=== PATIENT | female | born 1950 | race Caucasian/White ===

== ENCOUNTER 2018-05-25 00:37 | Emergency (ER) | payer MEDICARE ==
[2018-05-25 00:43] VITALS: BP 154/95
== END 2018-05-25 01:42 | disposition left against medical advice (07) ==
LOC: ED 00:37
DX: R21 Rash and other nonspecific skin eruption (principal); R06.02 Shortness of breath; Z53.21 Procedure and treatment not carried out due to patient leaving prior to being seen by health care provider

== ENCOUNTER 2018-05-25 09:10 | Emergency (ER) | payer MEDICARE ==
[2018-05-25] MEDS ORDERED: Famotidine TAB* 20 MG PO ONE (10:35)
[2018-05-25] MEDS ORDERED: diPHENhydraMINE PO* 50 MG PO ONE (10:35)
[2018-05-25] MEDS ORDERED: methylPREDNISolone 125 MG* 2 ML VIAL IV ONE (10:35)
[2018-05-25] MEDS ORDERED: predniSONE TAB* 20 MG PO ONE (11:04)
[2018-05-25 11:14] LABS: ABS Basophils 0 10^3/ul (0-0.2); ABS Eosinophils 0.3 10^3/ul (0-0.6); ABS Lymphocytes 0.9 10^3/ul (1.0-4.8); ABS Monocytes 0.7 10^3/ul (0-0.8); ABS Neutrophils 3.7 10^3/ul (1.5-7.7); ABS Nucleated RBC 0 10^3/ul; Eosinophil % 4.8 %; Hematocrit 34 % (33-41); Hemoglobin 11.5 g/dL (12.0-16.0); Lymphocyte % 15.9 %; Mean Corpuscular HGB Conc 34 g/dL (31-36); Mean Corpuscular Hemoglobin 29 pg (27-31); Mean Corpuscular Volume 86 fL (80-97); Mean Platelet Volume 8.3 fL (7.4-10.4); Nucleated Red Blood Cells % 0; Platelet Count 191 10^3/uL (150-450); Red Cell Distribution Width 14 % (10.5-15); White Blood Count 5.6 10^3/uL (3.5-10.8)
[2018-05-25 11:32] LABS: Albumin 3.9 g/dL (3.2-5.2); Albumin/Globulin Ratio 1.1 (1-3); BUN/Creatinine Ratio 19.4 (8-20); C Reactive Protein 7.15 mg/L (<8.01); Calcium 9.7 mg/dL (8.6-10.3); EGFR African American 45.5 (>60); EGFR Non-African American 37.6 (>60); Globulin 3.5 g/dL (2-4); Potassium 4.4 mmol/L (3.5-5.0); Total Bilirubin 0.3 mg/dL (0.2-1.0); Total Protein 7.4 g/dL (6.4-8.9)
[2018-05-25 13:06] VITALS: BP 125/78
--- NOTE | 2018-05-25 17:59 | ED ---
Skin Complaint - HPI Summary HPI Summary: Patient is a 68-year-old female who presents emergency department for a pruritic rash that started last night. Patient states she woke up from sleep around 11:00 last night and noticed a rash to her upper chest neck and face. She describes rash as a burning sensation and it is itchy. Patient checked into the emergency department last night but left before being seen due to a times. Patient states she took Benadryl without improvement. Patient notes a history of lupus and is not currently on any medications. Also has a history of high blood pressure and takes lisinopril. Patient denies any new medications , exposures, foods, lotions, laundry detergents, etc. Symptoms are mild-to- moderate in severity. No current modifying factors. Denies chest pain, shortness of breath, recent illness, abdominal pain, vomiting, diarrhea, urinary symptoms. Patient does note chronic headaches and currently has a headache. She was was noted to have a fever in the ER for 100.8F but denies any flulike symptoms. - History of Current Complaint Chief Complaint: EDRashSkinAbscess Time Seen by Provider: 05/25/18 09:23 Stated Complaint: RASH ALL OVER PER PT Hx Obtained From: Patient Pain Intensity: 2 Pain Scale Used: 0-10 Numeric - Allergy/Home Medications Allergies/Adverse Reactions: Allergies Allergy/AdvReac Type Severity Reaction Status Date / Time niacin Allergy Swelling Verified 05/25/18 09:12 Of Face,Lips,& Throat sulfamethoxazole Allergy Swelling Verified 05/25/18 09:12 [From Bactrim] Of Face,Lips,& Throat tetracycline Allergy Swelling Verified 05/25/18 09:12 Of Face,Lips,& Throat trimethoprim [From Bactrim] Allergy Swelling Verified 05/25/18 09:12 Of Face,Lips,& Throat Home Medications: Home Medications Calcium Carbonate/Vitamin D3 [Calcium 1000 + D] 1 tab PO DAILY 05/25/18 [ History Confirmed 05/25/18] Lisinopril/HCTZ 20/12.5(NF) [Zestoretic 20/12.5(NF)] 1 tab PO DAILY 05/25/18 [ History Confirmed 05/25/18] Omeprazole 20 mg PO EVERY OTHER DAY 05/25/18 [History Confirmed 05/25/18] PMH/Surg Hx/FS Hx/Imm Hx Previously Healthy: Yes Endocrine/Hematology History: Reports: Hx Systemic Lupus Erythematosus Musculoskeletal History: Reports: Hx Arthritis Infectious Disease History: No Infectious Disease History: Denies: Traveled Outside the [place] in Last 30 Days - Family History Known Family History: Positive: Non-Contributory - Social History Occupation: Retired Lives: With Family Alcohol Use: None Substance Use Type: Reports: None Smoking Status (MU): Never Smoked Tobacco Review of Systems Positive: Fever, Chills Eyes: Negative ENT: Negative Cardiovascular: Negative Negative: Palpitations, Chest Pain Positive: Cough - chronic mild cough. Negative: Shortness Of Breath Gastrointestinal: Negative Negative: Abdominal Pain, Vomiting, Diarrhea Genitourinary: Negative Negative: dysuria Musculoskeletal: Negative Negative: Myalgia Positive: Rash Positive: Headache. Negative: Weakness, Paresthesia, Numbness, Syncope All Other Systems Reviewed And Are Negative: Yes Physical Exam Triage Information Reviewed: Yes Vital Signs On Initial Exam: Initial Vitals Temp Pulse Resp BP Pulse Ox 100.8 F 99 18 135/82 99 05/25/18 09:13 05/25/18 09:13 05/25/18 09:13 05/25/18 09:13 05/25/18 09:13 Vital Signs Reviewed: Yes Appearance: Positive: Well-Appearing - Pt. sitting up in bed in NAD. present. Skin: Positive: Warm, Dry, Other - Erythematous macular rash noted to upper chest that extends to neck, face, ears, and posterior neck. faintly on abd. Blanchable. No vesicles or blisters. Neg. nikolsky sign. Head/Face: Positive: Normal Head/Face Inspection Eyes: Positive: Normal, EOMI, SANTOSH, Conjunctiva Clear Neck: Positive: Supple, Nontender Respiratory/Lung Sounds: Positive: Clear to Auscultation, Breath Sounds Present. Negative: Rales, Rhonchi, Wheezes Cardiovascular: Positive: Normal, RRR Abdomen Description: Positive: Nontender, Soft Musculoskeletal: Positive: Normal, Strength/ROM Intact Neurological: Positive: Normal, CN Intact II-III Psychiatric: Positive: Affect/Mood Appropriate Diagnostics - Vital Signs Vital Signs Temp Pulse Resp BP Pulse Ox 05/25/18 13:05 97.8 F 90 18 125/78 99 05/25/18 09:13 100.8 F 99 18 135/82 99 - Laboratory Lab Results: Lab Results 05/25/18 05/25/18 Range/Units 10:58 10:58 WBC 5.6 (3.5-10.8) 10^3/uL RBC 4.00 (3.70-4.87) 10^6 /uL Hgb 11.5 L (12.0-16.0) g/dL Hct 34 (33-41) % MCV 86 (80-97) fL MCH 29 (27-31) pg MCHC 34 (31-36) g/dL RDW 14 (10.5-15) % Plt Count 191 (150-450) 10^3/uL MPV 8.3 (7.4-10.4) fL Neut % (Auto) 66.3 % Lymph % (Auto) 15.9 % [place] % (Auto) 12.5 % Eos % (Auto) 4.8 % Baso % (Auto) 0.5 % Absolute Neuts (auto) 3.7 (1.5-7.7) 10^3/ul Absolute Lymphs (auto) 0.9 L (1.0-4.8) 10^3/ul Absolute Monos (auto) 0.7 (0-0.8) 10^3/ul Absolute Eos (auto) 0.3 (0-0.6) 10^3/ul Absolute Basos (auto) 0 (0-0.2) 10^3/ul Absolute Nucleated RBC 0 10^3/ul Nucleated RBC % 0 Sodium 135 (135-145) mmol/L Potassium 4.4 (3.5-5.0) mmol/L Chloride 101 (101-111) mmol/L Carbon Dioxide 28 (22-32) mmol/L Anion Gap 6 (2-11) mmol/L BUN 27 H (6-24) mg/dL Creatinine 1.39 H (0.51-0.95) mg/dL Est GFR ( Amer) 45.5 (>60) Est GFR (Non-Af Amer) 37.6 (>60) BUN/Creatinine Ratio 19.4 (8-20) Glucose 104 H (70-100) mg/dL Calcium 9.7 (8.6-10.3) mg/dL Total Bilirubin 0.30 (0.2-1.0) mg/dL AST 19 (13-39) U/L ALT 12 (7-52) U/L Alkaline Phosphatase 77 (34-104) U/L C-Reactive Protein 7.15 (<8.01) mg/L Total Protein 7.4 (6.4-8.9) g/dL Albumin 3.9 (3.2-5.2) g/dL Globulin 3.5 (2-4) g/dL Albumin/Globulin Ratio 1.1 (1-3) Result Diagrams: 05/25/18 10:58 05/25/18 10:58 Lab Statement: Any lab studies that have been ordered have been reviewed, and results considered in the medical decision making process. Course/Dx - Course Course Of Treatment: Patient presenting for rash and low-grade fever. She is no respiratory symptoms, facial or mouth swelling or evidence of anaphylaxis. Patient was examined by Dr. Hoffman as well. He feels it is most likely secondary to allergic reaction. Patient was given a dose of Benadryl, Pepcid and prednisone. Basic blood work, chest x-ray, urine and influenza were ordered. Labs are unremarkable including normal CBC and CRP. Chest x-ray negative for acute findings. Patient did not provide a urine sample. Patient refused influenza swab stating she has had nasal surgery and was told to never have anything placed in her nose. On reexamination rashes roughly the same. Will treat palpation on Pepcid, Benadryl and prednisone at home for a few days. Patient has a scheduled appointment with her family doctor for this coming Monday. Advised to return to the ER for worsening rash, pain, high fever, blistering or if concerned. Patient understands and agrees with plan. - Differential Diagnoses - Skin Complaint Differential Diagnoses: Abscess, Cellulitis, Contact Dermatitis, Erythema Nodosum, Erythema Multiforme - Diagnoses Provider Diagnoses: Rash, Allergic reaction Discharge - Sign-Out/Discharge Documenting (check all that apply): Patient Departure Patient Received Moderate/Deep Sedation with Procedure: No - Discharge Plan Condition: Good Disposition: HOME Prescriptions: Famotidine TAB* [Pepcid 20 MG TAB*] 40 mg PO DAILY #5 tab predniSONE TAB* [Deltasone 20 MG TAB*] 40 mg PO DAILY #10 tab Patient Education Materials: Urticaria (ED), Acute Rash (ED) Referrals: Isauro Campbell MD [Primary Care Provider] - Additional Instructions: Follow up with Dr. Campbell as scheduled next week Take medication as directed Take over the counter benadryl as directed for itching and rash Return to ER for high fever, blistering, spreading rash, chest pain, shortness of breath or if concerned - Billing Disposition and Condition Condition: GOOD Disposition: Home
== END 2018-05-25 13:05 | disposition home or self-care (01) ==
LOC: ED 09:10
DX: T78.40XA Allergy, unspecified, initial encounter (principal); X58.XXXA Exposure to other specified factors, initial encounter; R21 Rash and other nonspecific skin eruption; M32.9 Systemic lupus erythematosus, unspecified; M19.90 Unspecified osteoarthritis, unspecified site; Z88.2 Allergy status to sulfonamides
CPT/HCPCS: 36415; 71046; 80053; 85025; 86140; 96374; 99283; A9270-GY; J7512

== ENCOUNTER 2018-06-12 14:27 | Emergency (ER) | payer MEDICARE ==
[2018-06-12 16:44] VITALS: BP 120/68
--- NOTE | 2018-06-12 17:42 | ED ---
Lower Extremity - HPI Summary HPI Summary: patient is a 68-year-old female presenting to the ED with left lower extremity pain after a fall 1 week ago. She states after her fall, her whole body hurt, but denied any pain to the leg. She endorsed pain over the ankle, which is now improved and denies any pain currently. She states the pain is a sharp nervelike pain which is intermittent, runs to the posterior calf and hamstring intermittently only with ambulation and only in the last 2 days. She denies any back pain. Denies any urinary symptoms. Patient has a history of lupus and arthritis. She states this feels different than her previous pains. She's never been diagnosed with a blood clot and denies any blood thinners. - History of Current Complaint Chief Complaint: EDExtremityLower Stated Complaint: FELL/LEFT LEG PAIN PER PT Time Seen by Provider: 06/12/18 14:41 Hx Obtained From: Patient Onset of Pain: Minutes, Hours Onset/Duration: Hours Severity Initially: Moderate Severity Currently: Moderate Pain Intensity: 3 Pain Scale Used: 0-10 Numeric Timing: Constant, Intermittent, Lasting Minutes Location: Is Discrete @ - left leg Associated Signs And Symptoms: Positive: Negative Aggravating Factor(s): Standing, Ambulation Alleviating Factor(s): Rest Able to Bear Weight: Yes - Risk Factors Gout Risk Factors: Negative DVT Risk Factors: Negative Septic Arthritis Risk Factor: Negative - Allergies/Home Medications Allergies/Adverse Reactions: Allergies Allergy/AdvReac Type Severity Reaction Status Date / Time niacin Allergy Swelling Verified 06/12/18 14:34 Of Face,Lips,& Throat sulfamethoxazole Allergy Swelling Verified 06/12/18 14:34 [From Bactrim] Of Face,Lips,& Throat tetracycline Allergy Swelling Verified 06/12/18 14:34 Of Face,Lips,& Throat trimethoprim [From Bactrim] Allergy Swelling Verified 06/12/18 14:34 Of Face,Lips,& Throat PMH/Surg Hx/FS Hx/Imm Hx Previously Healthy: Yes Endocrine/Hematology History: Reports: Hx Systemic Lupus Erythematosus Musculoskeletal History: Reports: Hx Arthritis - Immunization History Hx Pertussis Vaccination: No Immunizations Up to Date: Yes Infectious Disease History: No Infectious Disease History: Denies: Traveled Outside the [place] in Last 30 Days - Family History Known Family History: Positive: Non-Contributory - Social History Occupation: Unemployed Lives: With Family Alcohol Use: None Hx Substance Use: No Substance Use Type: Reports: None Smoking Status (MU): Never Smoked Tobacco Review of Systems Constitutional: Negative Negative: Fever, Chills, Fatigue, Skin Diaphoresis Negative: Shortness Of Breath, Cough Genitourinary: Negative Positive: no symptoms reported, see HPI Negative: Arthralgia, Myalgia Negative: Rash, Bruising Neurological: Negative All Other Systems Reviewed And Are Negative: Yes Physical Exam Triage Information Reviewed: Yes Vital Signs On Initial Exam: Initial Vitals Temp Pulse Resp BP Pulse Ox 98 F 88 20 150/93 98 06/12/18 14:31 06/12/18 14:31 06/12/18 14:31 06/12/18 14:31 06/12/18 14:31 Vital Signs Reviewed: Yes Appearance: Positive: Well-Appearing, Well-Nourished Skin: Positive: Warm, Skin Color Reflects Adequate Perfusion Head/Face: Positive: Normal Head/Face Inspection Eyes: Positive: EOMI, Conjunctiva Clear Neck: Positive: Supple, No Lymphadenopathy Respiratory/Lung Sounds: Positive: Clear to Auscultation, Breath Sounds Present Musculoskeletal: Positive: Pain @ - left calf pain radiating through hamstring Neurological: Positive: Sensory/Motor Intact, Alert, Oriented to Person Place, Time Psychiatric: Positive: Affect/Mood Appropriate AVPU Assessment: Alert Diagnostics - Vital Signs Vital Signs Temp Pulse Resp BP Pulse Ox 06/12/18 17:18 97.8 F 72 18 120/68 93 06/12/18 16:43 97.8 F 72 18 120/68 93 06/12/18 14:31 98 F 88 20 150/93 98 - Laboratory Lab Statement: Any lab studies that have been ordered have been reviewed, and results considered in the medical decision making process. Lower Extremity Course/Dx - Course Course Of Treatment: On physical examination, patient appears well, there is no erythema or swelling to the lower extremity. Plantar flexion and dorsiflexion are intact to the left lower extremity. No pain to the ankle or to the knee. No pain to the hip. She states she is denying any pain right now in the pain is intermittent, 10 out of 10 when present and shooting like nerve pain. No pain to the posterior cervical, thoracic or lumbar spine. No CVA tenderness bilaterally. She denies any urinary symptoms. Due to the pain in the calf which is intermittent, a DVT ultrasound obtained. This was negative for any acute findings except for a popliteal cyst. Findings were discussed with patient and I've given her pain control for the discomfort. I believe she is having nerve pain associated with her fall from last week. She will follow-up with her PCP. She is given tramadol for discomfort. - Diagnoses Differential Diagnosis/HQI/PQRI: Positive: Sprain, Strain Provider Diagnoses: Leg pain, Nerve pain Discharge - Sign-Out/Discharge Documenting (check all that apply): Patient Departure Patient Received Moderate/Deep Sedation with Procedure: No - Discharge Plan Condition: Stable Disposition: HOME Prescriptions: traMADol TAB* [Ultram*] 50 mg PO Q8H PRN #12 tab MDD 3 PRN Reason: Pain Patient Education Materials: Bakers Cyst (ED) Referrals: Isauro Campbell MD [Primary Care Provider] - Additional Instructions: Please follow up with PCP as needed Tramadol up to 3 times daily as needed for pain or immediately before bed, use this as needed for discomfort - Billing Disposition and Condition Condition: STABLE Disposition: Home
== END 2018-06-12 17:18 | disposition home or self-care (01) ==
LOC: ED 14:27
DX: M79.662 Pain in left lower leg (principal); M79.2 Neuralgia and neuritis, unspecified; Z88.2 Allergy status to sulfonamides; M32.9 Systemic lupus erythematosus, unspecified
CPT/HCPCS: 99282

== ENCOUNTER 2023-05-17 22:21 | Observation (INO) ==
[2023-05-17 23:36] LABS: ABS Lymphocytes 0.6 10^3/uL (1.0-4.8); ABS Monocytes 0.2 10^3/uL (0.0-0.9); ABS Neutrophils 6.2 10^3/uL (1.5-7.6); ABS Nucleated RBC 0.01 10^3/ul; Eosinophil % 0.1 %; Hemoglobin 13.3 g/dL (11.5-14.3); Mean Corpuscular Hemoglobin 27.9 pg (27-33); Mean Corpuscular Hgb Conc 33.2 g/dL (31-36); Mean Corpuscular Volume 84.2 fL (80-97); Nucleated Red Blood Cells % 0.2 %/100WBC (0.0-0.8); Platelet Count 211 10^3/uL (150-450); Red Blood Count 4.75 10^6/uL (3.63-4.92); Red Cell Distribution Width 15.8 % (12-17); White Blood Count 7.1 10^3/uL (3.8-11.8)
[2023-05-18 00:02] LABS: Albumin 4.3 g/dL (3.2-5.2); Albumin/Globulin Ratio 1.2 (1-3); Calcium 9.7 mg/dL (8.6-10.3); Creatinine, Serum 1.08 mg/dL (0.51-0.95); Globulin 3.7 g/dL (2-4); Potassium 4.6 mmol/L (3.5-5.0); Total Bilirubin 0.4 mg/dL (0.2-1.0); eGFR CKD-EPI 53.9 (>60)
[2023-05-18] MEDS: Enoxaparin 40 MG/0.4 ML SYR SUBCUT SCH (05:59)
[2023-05-19 05:37] LABS: ABS Eosinophils 0.1 10^3/uL (0.0-0.5); ABS Lymphocytes 1.6 10^3/uL (1.0-4.8); ABS Monocytes 0.7 10^3/uL (0.0-0.9); ABS Neutrophils 4.3 10^3/uL (1.5-7.6); ABS Nucleated RBC 0.01 10^3/ul; Eosinophil % 1.7 %; Hematocrit 34.5 % (35-45); Hemoglobin 11.3 g/dL (11.5-14.3); Mean Corpuscular Hemoglobin 27.6 pg (27-33); Mean Corpuscular Hgb Conc 32.9 g/dL (31-36); Mean Corpuscular Volume 84.2 fL (80-97); Mean Platelet Volume 7.9 fL (7.5-11.2); Nucleated Red Blood Cells % 0.1 %/100WBC (0.0-0.8); Platelet Count 188 10^3/uL (150-450); Red Cell Distribution Width 16.3 % (12-17); White Blood Count 6.8 10^3/uL (3.8-11.8)
[2023-05-19 06:20] LABS: Calcium 8.8 mg/dL (8.6-10.3); Creatinine, Serum 1.2 mg/dL (0.51-0.95); Magnesium 2.1 mg/dL (1.9-2.7); Potassium 4.4 mmol/L (3.5-5.0); eGFR CKD-EPI 47.5 (>60)
[2023-05-19 09:11] VITALS: BP 130/59
== END 2023-05-19 10:40 | disposition home or self-care (01) ==
LOC: ED 22:21 → EDHOLD 05-18 05:00 → INTOOBSV 05-18 05:00 → ICU 05-18 07:30
PROVIDERS: ADMIT Student in an Organized Health Care Education/Training Program; ATTEND Student in an Organized Health Care Education/Training Program